=== PATIENT | male | born 1955 | race Caucasian/White ===

== ENCOUNTER 2021-02-27 09:09 | Outpatient (CLI) | payer BC ==
[~2021-02-27] VITALS: Ht 182.9 cm; Wt 100.0 kg
[2021-02-27] VITALS (7 sets, daily range): BP systolic 105–131; BP diastolic 47–59; PULSE 66–76; TEMP 97.4
[2021-02-27] MEDS ORDERED: ALBUTEROL0.83 MG/ML IH (10:27)
[2021-02-27] MEDS ORDERED: ZITHROMAX500 M2 PO (10:28)
[2021-02-27] MEDS ORDERED: ASPIRIN E.C. 8181 MG PO (10:28)
[2021-02-27] MEDS ORDERED: PROTONIX 40MG T40 MG PO (10:28)
--- NOTE | 2021-02-27 11:30 | NUR ---
Pt tolerated infusion and 1 hr obs period without issue. INT DC'd with catheter intact. He is assisted out to ED entrance by wheelchair.
== END 2021-02-27 11:30 | disposition home or self-care (01) ==
LOC: EUO 09:09
DX: U07.1 COVID-19 (principal)
CPT/HCPCS: M0245